=== PATIENT | female | born 1955 | race Caucasian/White ===

== ENCOUNTER 2018-11-11 14:20 | Emergency (ER) | payer BC ==
--- OUTSIDE RECORDS SUMMARY | 2018-11-11 14:26 | XMS REPORT | Continuity of Care Document ---
:1955 External Reference #:[id number] Author Name Fidelia Robledo Care Team Providers Name Role Phone Obie Black MD Primary Care Physician Unavailable Payers Date Identification Numbers Payment Provider Subscriber Policy Number: [id number] [employer] Sally Echeverria PayID: [id number] [address] [address] [place] [address] Problems Active Problems Provider Date Dyspnea Ibeth Duran MD Onset: 11/09/2016 Family History Date Family Member(s) Observation Comments General Father had diabetes, Mother had stroke General father-lymphoma General belle(sister) DM,Diverticulitis General lu(sister)diverticulosis General Colon Cancer father Father Diabetes Type II Father Colon Cancer Mother Stroke Mother due to Stroke () - from Stroke in 2011 Siblings 2 2 sisters, 1 sister is overweight and is diabetic and has diverticulitis. Social History Type Date Description Comments Sex Unknown Marital Status Lives With Occupation It business senior escrow officer Tobacco Use Start: Unknown End: Former Cigarette Smoker Unknown ETOH Use Occasionally consumes alcohol Tobacco Use Start: Unknown End: Patient is a former smoker Unknown Recreational Drug Use Denies Drug Use Tobacco Use Start: Unknown quit 20 years ago Smoking Status Reviewed: 09/17/18 quit 20 years ago Exercise Type/Frequency Exercises sporadically Allergies, Adverse Reactions, Alerts Active Allergies Reaction Severity Comments Date Latex 09/29/2015 adhesive tape 09/29/2015 Nickel 11/09/2016 Inactive Allergies NKDA 09/29/2015 Medications Active Medications SIG Qnty Indications Ordering Provider Date Raloxifene HCL 1 by mouth every 90tabs Peggy Cespedes MD 09/29/2015 60mg day Tablets Calcium + D + K 1 by mouth every Unknown day [id number] Tablets Vitamin D 1 by mouth every Unknown 2000Iu day Tablets Glucosamine 2 by mouth a day Unknown Chondroitin 500 Complex 500Comp Capsules Aleve 1 tablet by Unknown 220mg Tablets mouth as needed Claritin Unknown Medications Administered in Office Medication SIG Qnty Indications Ordering Provider Date Depomedrol 40MG Armando Arevalo M.D. 03/14/2018 Injection Vital Signs Date Vital Result Comment 09/17/2018 8:10am Height 66 inches 5'6" Weight 180.00 lb Heart Rate 70 /min BP Systolic 122 mmHg BP Diastolic 70 mmHg Respiratory Rate 12 /min Pain Level 8 BMI (Body Mass Index) 29.0 kg/m2 2018 8:00am Height 66 inches 5'6" Weight 185.00 lb BP Systolic 130 mmHg BP Diastolic 80 mmHg Respiratory Rate 15 /min Body Temperature 96.1 F Pain Level 0 BMI (Body Mass Index) 29.9 kg/m2 07/12/2018 8:05am Height 66 inches 5'6" Weight 185.00 lb patient stated Heart Rate 88 /min BP Systolic 128 mmHg BP Diastolic 82 mmHg Respiratory Rate 18 /min Body Temperature 97.1 F Pain Level 8 BMI (Body Mass Index) 29.9 kg/m2 06/14/2018 10:03am Height 66 inches 5'6" Weight 185.00 lb Heart Rate 60 /min BP Systolic 120 mmHg BP Diastolic 80 mmHg Pain Level 2 BMI (Body Mass Index) 29.9 kg/m2 05/24/2018 9:24am Height 66 inches 5'6" Weight 185.00 lb Patient Stated Heart Rate 70 /min BP Systolic 132 mmHg BP Diastolic 78 mmHg Respiratory Rate 12 /min Pain Level 9 BMI (Body Mass Index) 29.9 kg/m2 03/14/2018 3:30pm Height 66 inches 5'6" Heart Rate 64 /min BP Systolic Sitting 128 mmHg BP Diastolic Sitting 92 mmHg Respiratory Rate 12 /min no respiratory difficulties Pain Level 7 01/24/2018 3:09pm Height 66 inches 5'6" Heart Rate 72 /min BP Systolic Sitting 126 mmHg BP Diastolic Sitting 96 mmHg Respiratory Rate 16 /min Pain Level 8 when walking 12/13/2016 2:03pm Height 66 inches 5'6" Weight 188.00 lb w/ shoes Heart Rate 76 /min reg BP Systolic Sitting 146 mmHg Lue, reg cuff BP Diastolic Sitting 86 mmHg Lue, reg cuff Respiratory Rate 16 /min O2 % BldC Oximetry 97 % on Ra BMI (Body Mass Index) 30.3 kg/m2 11/09/2016 10:08am Height 66 inches 5'6" Weight 186.00 lb Heart Rate 66 /min BP Systolic Sitting 116 mmHg BP Diastolic Sitting 80 mmHg Respiratory Rate 14 /min O2 % BldC Oximetry 98 % BMI (Body Mass Index) 30.0 kg/m2 Neck Circumference in inches 15.25 09/29/2015 3:35pm Height 66 inches 5'6" Weight 169.00 lb Pain Level 2 BMI (Body Mass Index) 27.3 kg/m2 Procedures Date Code Description Status 09/17/2018 Inject/Drain Joint/Bursa Major W/O US Completed 03/14/2018 Injection Single Tendon Origin/Insertion Completed 01/24/2018 34480 Rad Exam; Foot Comp Completed 11/24/2016 30034 Sleep Study Unattended,HRT Rate,Oxygen Sat,Resp Completed Effort/Airflow 11/14/2016 37768 Diffusing Capacity Completed 11/14/2016 83620 Plethysmography Determination Lung Volumes & Per Airway Completed Resist 11/14/2016 71588 Pulmonary Function><Bronchodil Completed 10/07/2016 61746 ECHO Stress Test Incl Perf Contiuous ekg Monitoring W/Phys Completed Superv 04/27/2013 42627 Treadmill Interp/Report Only Completed 04/27/2013 18731 Stress Test Supervsn W/Out I/R Completed 04/27/2013 81852 EKG, Interpretation Only Completed 04/26/2013 38966 EKG, Interpretation Only Completed 06/29/2012 02711 ECHO Stress Test Incl Perf Contiuous ekg Monitoring W/Phys Completed Superv Encounters Type Date Location Provider Dx Diagnosis Office Visit 2018 [facility] Arm[facility] Arevalo M25.371 Other 8:00a [facility] instability, right ankle Office Visit 07/12/2018 [facility] Armando Arevalo M25.371 Other 8:15a [facility] instability, right ankle Office Visit 06/14/2018 [facility] Armando Arevalo, M25.371 Other 9:45a [facility] instability, right ankle Office Visit 05/24/2018 [facility] Arm[facility] Arevalo, M76.71 Peroneal 9:30a [facility] tendinitis, right leg Office Visit 03/14/2018 [facility] Arm[facility] Arevalo M76.71 Peroneal 3:00p [facility] [employer] AT M[employer] tendinitis, right Mich[place] leg Office Visit 01/24/2018 [facility] Armando Arevalo, S92.354A Nondisp fx of 2:30p [facility] [employer] Sales [employer] AT M[facility]D[employer] fifth metatarsal Gaffney bone, right foot, init M79.671 Pain in right foot Office Visit 12/13/2016 1:45p Pulmonology And Ibeth R06.02 Shortness of Sleep [facility] MD Renee breath Field Sales Engineer G47.33 Obstructive sleep apnea (adult) (pediatric) Office Visit 11/09/2016 10:15a [facility] And Ibeth R06.02 Shortness of Sleep [facility] Field Sales Engineer R05 Cough R09.82 Postnasal drip R06.83 Snoring R40.0 Somnolence R35.1 Nocturia R68.2 Dry mouth, unspecified K21.9 Gastro-esophageal reflux disease without esophagitis Office Visit 09/29/2015 3:15p Orthopedic Peggy Cespedes, M25.561 Pain in right [facility] knee M17.11 Unilateral primary osteoarthritis, right knee M71.21 Synovial cyst of popliteal space [Smith], right knee Office Visit 04/27/2013 10:22a [facility] Flakita Gomez 786.50 [facility] Unspec Hospitalists 278.00 Obesity Unspec Office Visit 04/26/2013 10:19a [facility] Chaim Bell, 786.50 [facility] Unspec Hospitalists 278.00 Obesity Unspec Office Visit 11/24/2006 9:30a Neurosurgery Chris Hicks 721.3 Spondylosis [facility] Khalida Reina M.D. Lumbar W/O Myelopathy Plan of Treatment Future Appointment(s):10/22/2018 3:30 pm - Monica Martines M.D. at [facility].09/17/2018 - Monica Martines M.D.M22.2x2 Patellofemoral disorders, left kneeNew Therapy:Physical TherapyFollow up:Follow up: 1 ivipaR93.2x1 Patellofemoral disorders, right kneeM25.559 Pain in unspecified hipNew Xrays:Hips-Bilateral 5+ VWS, Ordered: 09/17/18M16.11 Unilateral primary osteoarthritis, right hipM16.12 Unilateral primary osteoarthritis, left hipM54.40 Lumbago with sciatica, unspecified sideM25.561 Pain in right kneeM25.562 Pain in left kneeM25.462 Effusion, left knee
--- OUTSIDE RECORDS SUMMARY | 2018-11-11 14:26 | XMS REPORT | Continuity of Care Document ---
:1955 External Reference #:[id number] Author Name Monica Martines M.D. (transmitted by agent of provider Vane Koenig) Address [address] [place] [address] [place] [address] Problems Active Problems Provider Date Dyspnea Ibeth Duran MD Onset: 11/09/2016 Social History Type Date Description Comments Sex Unknown Tobacco Use Start: Unknown End: Former Cigarette Smoker Unknown ETOH Use Occasionally consumes alcohol Tobacco Use Start: Unknown End: Patient is a former smoker Unknown Recreational Drug Use Denies Drug Use Tobacco Use Start: Unknown quit 20 years ago Smoking Status Reviewed: 10/22/18 quit 20 years ago Exercise Type/Frequency Exercises sporadically Allergies, Adverse Reactions, Alerts Active Allergies Reaction Severity Comments Date Latex 09/29/2015 adhesive tape 09/29/2015 Nickel 11/09/2016 Inactive Allergies NKDA 09/29/2015 Medications Active Medications SIG Qnty Indications Ordering Provider Date Raloxifene HCL 1 by mouth every 90tabs Peggy Cespedes MD 09/29/2015 60mg day Tablets Calcium + D + K 1 by mouth every Unknown day [id number] Tablets Vitamin D 1 by mouth every Unknown 2000Iu day Tablets Glucosamine 2 by mouth a day Unknown Chondroitin 500 Complex 500Comp Capsules Aleve 1 tablet by Unknown 220mg Tablets mouth as needed Claritin Unknown Medications Administered in Office Medication SIG Qnty Indications Ordering Provider Date Depomedrol 40MG Monica Martines M.D. 09/17/2018 Injection Depomedrol 40MG Armando Arevalo M.D. 03/14/2018 Injection Immunizations Description No Information Available Vital Signs Date Vital Result Comment 10/22/2018 4:01pm Height 66 inches 5'6" Weight 180.00 lb BP Systolic 134 mmHg BP Diastolic 90 mmHg Respiratory Rate 14 /min Body Temperature 97.5 F Pain Level 5 BMI (Body Mass Index) 29.0 kg/m2 09/17/2018 8:10am Height 66 inches 5'6" Weight 180.00 lb Heart Rate 70 /min BP Systolic 122 mmHg BP Diastolic 70 mmHg Respiratory Rate 12 /min Pain Level 8 BMI (Body Mass Index) 29.0 kg/m2 Results Description No Information Available Procedures Date Code Description Status 09/17/2018 43957 Inject/Drain Joint/Bursa Major W/O US Completed Medical Devices Description No Information Available Encounters Type Date Location Provider Dx Diagnosis Office Visit 09/17/2018 [facility] Monica Martines, M17.0 Bilateral primary 8:00a [facility] osteoarthritis of knee M16.12 Unilateral primary osteoarthritis, left hip M16.11 Unilateral primary osteoarthritis, right hip M54.40 Lumbago with sciatica, unspecified side M22.2x2 Patellofemoral disorders, left knee M22.2x1 Patellofemoral disorders, right knee M25.559 Pain in unspecified hip M25.561 Pain in right knee M25.562 Pain in left knee M25.462 Effusion, left knee Office Visit 2018 8:00a Armani Roberts M25.371 Other instability, [facility] Amy Arevalo right ankle C.M.A. Office Visit 07/12/2018 8:15a Armani Roberts M25.371 Other instability, [facility] Amy Arevalo right ankle C.M.A. Office Visit 06/14/2018 9:45a Armani Roberts M25.371 Other instability, [facility] Amy Arevalo right ankle C.M.A. Office Visit 05/24/2018 9:30a [facility] Armando M76.71 Peroneal Services [facility] Amy Arevalo tendinitis, right C.M.A. leg Assessments Date Code Description Provider 09/17/2018 M17.0 Bilateral primary osteoarthritis of knee Monica Martines M.D. 09/17/2018 M16.12 Unilateral primary osteoarthritis, left hip Monica Martines M.D. 09/17/2018 M16.11 Unilateral primary osteoarthritis, right hip Monica Martines M.D. 09/17/2018 M54.40 Lumbago with sciatica, unspecified side Monica Martines M.D. 09/17/2018 M22.2x2 Patellofemoral disorders, left knee Monica Martines M.D. 09/17/2018 M22.2x1 Patellofemoral disorders, right knee Monica Martines M.D. 09/17/2018 M25.559 Pain in unspecified hip Monica Martines M.D. 09/17/2018 M25.561 Pain in right knee Monica Martines M.D. 09/17/2018 M25.562 Pain in left knee Monica Martines M.D. 09/17/2018 M25.462 Effusion, left knee Monica Martines M.D. 2018 M25.371 Other instability, right ankle Armando Arevalo M.D. 07/12/2018 M25.371 Other instability, right ankle Armando Arevalo M.D. 06/14/2018 M25.371 Other instability, right ankle Armando Arevalo M.D. 05/24/2018 M76.71 Peroneal tendinitis, right leg Armando Arevalo M.D. Plan of Treatment No Information Available Functional Status Description No Information Available Mental Status Description No Information Available Referrals Description No Information Available
[2018-11-11 15:18] VITALS: BP 135/93
--- NOTE | 2018-11-11 16:01 | UC ---
Respiratory Complaint HPI - HPI Summary HPI Summary: URI SYMPTOMS FOR ABOUT 2 WEEKS THAT PATIENT REPORTS HAS NOW MOVED INTO HER CHEST. SHE HAS A DRY, HACKING COUGH. NO FEVER. NO NAUSEA/VOMITING. NO CHEST PAIN OR SHORTNESS OF BREATH. - History of Current Complaint Chief Complaint: UCRespiratory Stated Complaint: COUGH Time Seen by Provider: 11/11/18 15:54 Hx Obtained From: Patient Onset/Duration: Gradual Onset, Lasting Weeks, Still Present Timing: Constant Severity Initially: Moderate Severity Currently: Moderate Pain Intensity: 5 Pain Scale Used: 0-10 Numeric Character: Cough: Nonproductive Aggravating Factors: Nothing Alleviating Factors: Nothing - Allergies/Home Medications Allergies/Adverse Reactions: Allergies Allergy/AdvReac Type Severity Reaction Status Date / Time latex Allergy Rash And Verified 11/11/18 15:18 Itching ZINC AND NICKEL Allergy Rash And Uncoded 11/11/18 15:18 Itching Home Medications: Home Medications Glucosamine/D3/Boswellia Becca [Osteo Bi-Flex Tablet] 1 each PO DAILY 11/11/18 [ History Confirmed 11/11/18] Raloxifene (NF) [Evista(NF)] 60 mg PO DAILY 11/11/18 [History Confirmed 11/11/18 ] PMH/Surg Hx/FS Hx/Imm Hx - Additional Past Medical History Additional PMH: OSTEOPENIA Other History Of: Negative For: Anticoagulant Therapy - Surgical History Surgical History: Yes Surgery Procedure, Year, and Place: ATHROPLASTY RT TOE - 5TH TOE. BREAST BIOPSY - BENIGN ( W/ BIOPSY MARKER). T&A. CORTISONE SHOT IN NECK AND LOWER BACK - Family History Known Family History: Positive: Non-Contributory - Social History Alcohol Use: Daily Alcohol Amount: 2 glasses of wine with dinner Substance Use Type: None Smoking Status (MU): Former Smoker Type: Cigarettes Amount Used/How Often: PPD for 20 years, (age [age]) Have You Smoked in the Last Year: No When Did the Patient Quit Smoking/Using Tobacco: 20+ YEARS AGO - Immunization History Most Recent Influenza Vaccination: 2013 Most Recent Tetanus Shot: 2012 Most Recent Pneumonia Vaccination: never Review of Systems All Other Systems Reviewed And Are Negative: Yes Constitutional: Positive: Negative Respiratory: Positive: Cough, Other - chest congestion Cardiovascular: Positive: Negative Gastrointestinal: Positive: Negative Physical Exam Triage Information Reviewed: Yes Appearance: Well-Appearing, No Pain Distress, Well-Nourished Vital Signs: Initial Vital Signs Temp 98.4 F 11/11/18 15:13 Pulse 71 11/11/18 15:13 Resp 16 11/11/18 15:13 BP 135/93 11/11/18 15:13 Pulse Ox 99 11/11/18 15:13 Vital Signs Reviewed: Yes Eyes: Positive: Conjunctiva Clear ENT: Positive: Hearing grossly normal, Pharynx normal, TMs normal Neck: Positive: Supple, Nontender, No Lymphadenopathy Respiratory Exam: Normal Cardiovascular Exam: Normal Abdomen Description: Positive: Soft Musculoskeletal: Positive: No Edema Neurological: Positive: Alert Psychological: Positive: Age Appropriate Behavior Skin: Negative: Rashes Respiratory Course/Dx - Differential Dx/Diagnosis Provider Diagnosis: Acute bronchitis Discharge ED - Sign-Out/Discharge Documenting (check all that apply): Patient Departure All imaging exams completed and their final reports reviewed: No Studies - Discharge Plan Condition: Stable Disposition: HOME Prescriptions: Azithromycin 500 mg PO DAILY #5 tab predniSONE TAB* [Deltasone 20 MG TAB*] 40 mg PO DAILY #10 tab Patient Education Materials: Acute Bronchitis (ED) Referrals: Obie Black MD [Primary Care Provider] - If Needed Additional Instructions: YOUR SYMPTOMS MAY BE VIRALLY MEDIATED BUT GIVEN THE LENGTH OF TIME YOU HAVE BEEN ILL WE WILL COVER YOU WITH ANTIBIOTICS. IF YOU START THE MEDICINE BE SURE TO TAKE IT FOR THE FULL COURSE. REST, HYDRATE, OTC MEDS NEEDED. WILL ALSO TREAT WITH PREDNISONE TO HELP WITH AIRWAY INFLAMMATION. SEEK FOLLOW-UP WITH YOUR PCP IF YOU ARE NOT IMPROVING OVER THE NEXT 1-2 WEEKS. - Billing Disposition and Condition Condition: STABLE Disposition: Home
== END 2018-11-11 16:16 | disposition home or self-care (01) ==
LOC: UCEAST 14:20
DX: J20.9 Acute bronchitis, unspecified (principal); Z91.040 Latex allergy status; Z91.09 Other allergy status, other than to drugs and biological substances; Z87.891 Personal history of nicotine dependence
CPT/HCPCS: 99212; G0463